=== PATIENT | female | born 1995 | race African-American/Black ===

== ENCOUNTER 2017-08-18 10:46 | Emergency (ER) | payer OTHER ==
[2017-08-18] MEDS ORDERED: GuaiFENesin DM* 5 ML UDC PO ONE (11:17)
[2017-08-18] MEDS ORDERED: NS 0.9% 1000 ML* 1,000 ML IV ONE (11:17)
[2017-08-18] MEDS ORDERED: guaiFENesin/CODIEN 100MG-10MG* 5 ML UDC PO ONE (11:17)
[2017-08-18] MEDS ORDERED: Acetaminophen TAB* 325 MG PO ONE (11:34)
[2017-08-18 11:42] LABS: ABS Basophils 0 10^3/ul (0-0.2); ABS Eosinophils 0 10^3/ul (0-0.6); ABS Lymphocytes 1.6 10^3/ul (1.0-4.8); ABS Monocytes 1.1 10^3/ul (0-0.8); ABS Neutrophils 9.4 10^3/ul (1.5-7.7); ABS Nucleated RBC 0 10^3/ul; Eosinophil % 0 % (0-6); Hematocrit 35 % (35-47); Hemoglobin 11.7 g/dl (12.0-16.0); Lymphocyte % 12.8 % (25-47); Mean Corpuscular HGB Conc 34 g/dl (31-36); Mean Corpuscular Hemoglobin 30 pg (27-31); Mean Corpuscular Volume 87 fL (80-97); Mean Platelet Volume 7 um3 (7.4-10.4); Nucleated Red Blood Cells % 0; Platelet Count 305 10^3/ul (150-450); Red Blood Count 3.95 10^6/ul (4.0-5.4); Red Cell Distribution Width 13 % (10.5-15); White Blood Count 12.1 10^3/ul (3.5-10.8)
[2017-08-18 11:56] LABS: EGFR Non-African American 67.6 (>60)
--- NOTE | 2017-08-18 12:21 | ED ---
HPI Febrile Illness - HPI Summary HPI Summary: Patient presents to the ED with cough, right sided rib pain worse with coughing and breathing deep, fever, sore throat, generalized illness and body aches. Denies chills or sweats. Denies abdominal pain, N/V/C/D. Denies flu immunizations or known ill contacts. Recent travel on a bus x 5 hours yesterday. She denies calf pain. Endorses OCP use. Denies smoking. She has been otherwise healthy and takes no medications. She is student at [employer], lives with roommates. Denies ETOH. Denies urinary symptoms, GIMENEZ, dizziness. Symptoms are aggravated by nothing, alleviated by nothing. She has not taken any medications for relief. - History of Current Complaint Chief Complaint: EDFever Time Seen by Provider: 08/18/17 11:03 Hx Obtained From: Patient Onset/Duration: Started Hours Ago Timing: Constant Temperature: 102.7 F Initial Severity: Moderate Current Severity: Moderate Pain Intensity: 3 Pain Scale Used: 0-10 Numeric Aggravating Factors: Nothing Alleviating Factors: Nothing Associated Signs and Symptoms: Negative - Risk Factors Pseudomonas Risk Factors: Negative Serious Bacterial Infection Risk Factors: Negative - Allergy/Home Medications Allergies/Adverse Reactions: Allergies Allergy/AdvReac Type Severity Reaction Status Date / Time No Known Allergies Allergy Verified 08/18/17 11:53 PMH/Surg Hx/FS Hx/Imm Hx Previously Healthy: Yes - Immunization History Hx Pertussis Vaccination: No Immunizations Up to Date: Unable to Obtain/Confirm Infectious Disease History: No Infectious Disease History: Denies: Traveled Outside the [place] in Last 30 Days - Social History Occupation: Unemployed, Student Lives: Alone Alcohol Use: None Hx Substance Use: No Substance Use Type: Reports: None Smoking Status (MU): Never Smoked Tobacco Review of Systems Positive: Fever, Fatigue. Negative: Chills, Skin Diaphoresis Negative: Photophobia, Blurred Vision, Diplopia Positive: Sore Throat. Negative: Epistaxis, Dental Pain, Ear Ache, Nasal Discharge Negative: Palpitations, Chest Pain Positive: Cough. Negative: Shortness Of Breath Negative: Abdominal Pain, Vomiting, Diarrhea, Nausea Genitourinary: Negative Positive: no symptoms reported, see HPI Musculoskeletal: Negative Skin: Negative Neurological: Negative All Other Systems Reviewed And Are Negative: Yes Physical Exam Triage Information Reviewed: Yes Vital Signs On Initial Exam: Initial Vitals Temp Pulse Resp BP Pulse Ox 102.3 F 111 19 118/66 99 08/18/17 10:58 08/18/17 10:58 08/18/17 10:58 08/18/17 10:58 08/18/17 10:58 Vital Signs Reviewed: Yes Appearance: Positive: Well-Appearing, Well-Nourished Skin: Positive: Warm, Skin Color Reflects Adequate Perfusion Head/Face: Positive: Normal Head/Face Inspection Eyes: Positive: EOMI, NALLELY, Conjunctiva Clear ENT: Positive: Uvula midline, Other - apthous ulcers inside the bottom lip. Negative: TM bulging, TM dull, TM red, Tonsillar swelling, Tonsillar exudate, Hoarse voice, Dental tenderness, Sinus tenderness Neck: Positive: Supple, No Lymphadenopathy Respiratory/Lung Sounds: Positive: Decreased Breath Sounds - bilaterally Cardiovascular: Positive: Normal, RRR, Pulses are Symmetrical in both Upper and Lower Extremities Musculoskeletal: Positive: Normal, Strength/ROM Intact Neurological: Positive: Speech Normal Psychiatric: Positive: Normal, Affect/Mood Appropriate AVPU Assessment: Alert - [place] Coma Scale Coma Scale Total: 15 Diagnostics - Vital Signs Vital Signs Temp Pulse Resp BP Pulse Ox 08/18/17 11:47 118 118/79 100 08/18/17 11:18 116 99 08/18/17 10:58 102.3 F 111 19 118/66 99 - Laboratory Lab Results: Lab Results 08/18/17 08/18/17 08/18/17 Range/Units 11:17 11:30 11:30 WBC 12.1 H (3.5-10.8) 10^3/ul RBC 3.95 L (4.0-5.4) 10^6/ul Hgb 11.7 L (12.0-16.0) g/dl Hct 35 (35-47) % MCV 87 (80-97) fL MCH 30 (27-31) pg MCHC 34 (31-36) g/dl RDW 13 (10.5-15) % Plt Count 305 (150-450) 10^3/ul MPV 7 L (7.4-10.4) um3 Neut % (Auto) 78.0 (38-83) % Lymph % (Auto) 12.8 L (25-47) % Gordon % (Auto) 9.0 (1-9) % Eos % (Auto) 0 (0-6) % Baso % (Auto) 0.2 (0-2) % Absolute Neuts (auto) 9.4 H (1.5-7.7) 10^3/ul Absolute Lymphs (auto) 1.6 (1.0-4.8) 10^3/ul Absolute Monos (auto) 1.1 H (0-0.8) 10^3/ul Absolute Eos (auto) 0 (0-0.6) 10^3/ul Absolute Basos (auto) 0 (0-0.2) 10^3/ul Absolute Nucleated RBC 0 10^3/ul Nucleated RBC % 0 D-Dimer, Quantitative (Less Than 230) ng/mL Sodium 132 L (133-145) mmol/L Potassium 3.7 (3.5-5.0) mmol/L Chloride 103 (101-111) mmol/L Carbon Dioxide 20 L (22-32) mmol/L Anion Gap 9 (2-11) mmol/L BUN 13 (6-24) mg/dL Creatinine 1.03 H (0.51-0.95) mg/dL Est GFR ( Amer) 87.0 (>60) Est GFR (Non-Af Amer) 67.6 (>60) BUN/Creatinine Ratio 12.6 (8-20) Glucose 119 H (70-100) mg/dL Calcium 9.1 (8.6-10.3) mg/dL Total Bilirubin 0.40 (0.2-1.0) mg/dL AST 23 (13-39) U/L ALT 15 (7-52) U/L Alkaline Phosphatase 47 (34-104) U/L Total Protein 7.5 (6.4-8.9) g/dL Albumin 3.9 (3.2-5.2) g/dL Globulin 3.6 (2-4) g/dL Albumin/Globulin Ratio 1.1 (1-3) Influenza A (Rapid) Negative (Negative) Influenza B (Rapid) Negative (Negative) Group A Strep Rapid (Negative) 08/18/17 08/18/17 Range/Units 11:30 11:43 WBC (3.5-10.8) 10^3/ul RBC (4.0-5.4) 10^6/ul Hgb (12.0-16.0) g/dl Hct (35-47) % MCV (80-97) fL MCH (27-31) pg MCHC (31-36) g/dl RDW (10.5-15) % Plt Count (150-450) 10^3/ul MPV (7.4-10.4) um3 Neut % (Auto) (38-83) % Lymph % (Auto) (25-47) % Gordon % (Auto) (1-9) % Eos % (Auto) (0-6) % Baso % (Auto) (0-2) % Absolute Neuts (auto) (1.5-7.7) 10^3/ul Absolute Lymphs (auto) (1.0-4.8) 10^3/ul Absolute Monos (auto) (0-0.8) 10^3/ul Absolute Eos (auto) (0-0.6) 10^3/ul Absolute Basos (auto) (0-0.2) 10^3/ul Absolute Nucleated RBC 10^3/ul Nucleated RBC % D-Dimer, Quantitative < 200 (Less Than 230) ng/mL Sodium (133-145) mmol/L Potassium (3.5-5.0) mmol/L Chloride (101-111) mmol/L Carbon Dioxide (22-32) mmol/L Anion Gap (2-11) mmol/L BUN (6-24) mg/dL Creatinine (0.51-0.95) mg/dL Est GFR ( Amer) (>60) Est GFR (Non-Af Amer) (>60) BUN/Creatinine Ratio (8-20) Glucose (70-100) mg/dL Calcium (8.6-10.3) mg/dL Total Bilirubin (0.2-1.0) mg/dL AST (13-39) U/L ALT (7-52) U/L Alkaline Phosphatase (34-104) U/L Total Protein (6.4-8.9) g/dL Albumin (3.2-5.2) g/dL Globulin (2-4) g/dL Albumin/Globulin Ratio (1-3) Influenza A (Rapid) (Negative) Influenza B (Rapid) (Negative) Group A Strep Rapid Negative (Negative) Result Diagrams: 08/18/17 11:30 08/18/17 11:30 Lab Statement: Any lab studies that have been ordered have been reviewed, and results considered in the medical decision making process. Course/Dx - Course Course Of Treatment: patient presents to the ED with febrile illness. Flu and strep negative. Labs obtained and shows slightly elevated WBC at 12.1 but otherwise OK. 102.3 on arrival with tachy at 118. 1L NS given. 650mg tylenol. 10ml Robitussin with codeine. She is feeling slightly improved. Concerned with apthous ulcers, but appears to be from sequelae of illness and not herpetic. Chest xray shows: no acute fractures. Patient is feeling improved, but still feeling ill. I have encouraged fluids including gatorade, robitussin with codeine, tylenol 650mg every 6 hours intermittently with ibuprofen 600mg for any fevers. She is to follow up with [facility] on Sunday for follow up. Treatment options explained to patient. Patient understands the plan, voices no concerns at this time and understands the return precatuions given to them if they develop any worsening or changing symptoms. They are OK for discharge at this time. VS stable on discharge. Primary care follow up as agreed on discharge. vital signs at discharge: 119/66; 97 - Febrile Illness Differential Diagnoses: Fever of Unknown Origin - Diagnoses Provider Diagnoses: Febrile illness Discharge - Discharge Plan Condition: Stable Disposition: HOME Prescriptions: Guaifenesin-Codeine [Coditussin AC 200-10 mg/5Ml] 10 ml PO Q6H PRN #120 ml MDD 40 PRN Reason: Cough Patient Education Materials: Viral Syndrome (ED) [facility] - Additional Instructions: Upper Respiratory Infection You appear to have a viral upper respiratory/bronchitis infection. Take prescribed medication as directed. Robitussin with codeine up to four times daily (2 teaspoons at a time) for cough Tylenol 650mg and ibuprofen 600mg intermittently for fever (every 4 hours) Also recommend taking Mucinex-D daily, along with doing saline rinses, salt water gargles, taking zicam and drinking emergen-c (available over the counter). Extra pillow at bedtime. Hot showers. Increase fluid intake. Get plenty of rest. Any new or worsening symptoms (fever, difficulty breathing, worsening symptoms) please seek medical attention immediately. Follow up with PCP for re-check and evaluation.
--- NOTE | 2017-08-18 14:17 | RAD ---
Indication: Cough, fever. 2 views of the chest including dual energy PA views demonstrates no mediastinal shift. Heart is of normal size and configuration. Lung elias appear clear. IMPRESSION: No active cardiopulmonary disease is noted.
[2017-08-18 15:51] VITALS: BP 110/65
== END 2017-08-18 15:50 | disposition home or self-care (01) ==
LOC: ED 10:46
DX: R50.9 Fever, unspecified (principal)
CPT/HCPCS: 36415; 71046; 80053; 85025; 85379; 87040; 87502; 87651; 96360; 96361; 99282; A9270-GY